=== PATIENT | female | born 2000 | race Caucasian/White ===

== ENCOUNTER 2020-01-17 08:00 | Outpatient (CLI) | payer BC ==
--- NOTE | 2020-01-17 10:49 | CT ---
Exam: CT angiogram of the abdomen HISTORY: Hypertension. Comparison none TECHNIQUE: CT angiogram of the abdomen is performed in the axial plane. Sagittal and coronal reformat sav images are submitted for dictation FINDINGS: Abdomen CT: Lung bases are clear Normal heart size. No significant pericardial fluid Lung bases are clear Flash filling hemangioma in the right hepatic lobe, segment 8 measures 1 cm. No evidence of nodularit y of the liver. Limited evaluation the portal vein which appears be grossly patent. Appropriate arterial phase enhancement of the spleen, pancreas, adrenal glands. Symmetric enhancement kidneys. No obstructive uropathy Visualized alimentary canal has a normal appearance. No lytic or blastic lesions in the osseous structures CT angiogram: The descending thoracic aorta, abdominal aorta, aortic bifurcation have appropriate enh ancement and luminal diameter. The celiac artery origin, superior mesenteric artery origin, solitary left renal artery origin and 2 separate right renal arteries have appropriate enhancement an d luminal diameter. There is no significant stenosis. Inferior mesenteric artery is unremarkable. IMPRESSION: No CT evidence of significant atherosclerotic disease, luminal narrowing or stenosis invo lving either renal artery.
== END 2020-01-17 08:01 | disposition home or self-care (01) ==
LOC: SCSCT 08:00
PROVIDERS: ATTEND Family Medicine
DX: R03.0 Elevated blood-pressure reading, without diagnosis of hypertension (principal)
CPT/HCPCS: 74175